=== PATIENT | male | born 1955 | race Caucasian/White ===

== ENCOUNTER 2021-12-05 09:36 | Day surgery (SDC) | payer OTHER, SELFPAY ==
[2021-12-05] VITALS (25 sets, daily range): BP systolic 95–146; BP diastolic 62–95; PULSE 60–93; RESP 12–20; TEMP 36.3–37.1; O2SAT 92–100; BMI 37.7
--- NOTE | 2021-12-05 09:58 | ED.GENADULT ---
HPI - General Adult General Time Seen by Provider: 09:58 Date Seen: 12/05/21 Chief complaint: Abdominal Pain Stated complaint: Abdominal Pain Time Seen by Provider: 12/05/21 09:37 Source: patient Mode of arrival: ambulatory Limitations: no limitations History of Present Illness HPI narrative: The patient is a 65-year-old male experienced abdominal pain since yesterday. It started in his right lower quadrant has remained there. He has some mild nausea. He has definite palpable tenderness in right lower quadrant. No urinary symptoms, no constipation or diarrhea. He has had history of abdominal surgery with hernia, but still has a gallbladder and appendix. He has a pacemaker in place, and has been on Lasix for peripheral edema. He has no chest pain leg pain. He is on Eliquis for blood thinning as well. His chart will be reviewed. No jaundice, no right upper quadrant pain, no rigors or chills. No change in urinary pattern. Related Data Home Medications Medication Instructions Recorded Confirmed apixaban 5 mg tablet (Eliquis) 5 mg PO Q12H 12/05/21 12/05/21 atorvastatin 20 mg tablet 20 mg PO HS 12/05/21 12/05/21 furosemide 40 mg tablet 40 mg PO DAILY 12/05/21 12/05/21 losartan 50 mg tablet 50 mg PO HS 12/05/21 12/05/21 metoprolol succinate 50 mg 75 mg PO DAILY 12/05/21 12/05/21 tablet,extended release 24 hr Allergies Allergy/AdvReac Type Severity Reaction Status Date / Time ampicillin Allergy Hives Verified 12/05/21 10:04 Review of Systems Status of ROS: Reports: 10 or more systems reviewed and unremarkable except as noted in History and below Exam Narrative: Exam Narrative: Objective: In general the patient is no apparent distress, alert or x3 No jaundice, no cyanosis HEENT is unremarkable Neck supple Chest is clear Heart rhythm regular without murmur Abdomen obese mild right lower abdominal right-sided tenderness, mild peritoneal inflammation with mild rebound, no palpable mass Extremities with 1+ edema, skin warm and dry Const: Vital Signs, click to edit/add: Vital Signs - 24 hr 12/05/21 09:58 Temperature 97.3 F L Pulse Rate [Left P ulse Oximeter] 93 Respiratory Rate 20 Blood Pressure [Le ft Upper Arm] 132/73 Pulse Oximetry 96 Course Course Hospital Course: Because of the patient's right lower quadrant pain and his tenderness to palpation concern would be for appendicitis. Patient will get an IV, IV fluid, laboratory studies, CT scan with IV contrast and possible surgical consultation Vital Signs Vital signs: Initial Vital Signs Temperature 97.3 F L 12/05/21 09:58 Temperature Source Temporal Artery Scan 12/05/21 09:58 Pulse Rate 93 12/05/21 09:58 Pulse Rhythm 12/05/21 09:58 Respiratory Rate 20 12/05/21 09:58 Blood Pressure 132/73 12/05/21 09:58 Blood Pressure Mean 92 12/05/21 09:58 Blood Pressure Position Sitting 12/05/21 09:58 Pulse Oximetry 96 12/05/21 09:58 Oxygen Delivery Method 12/05/21 09:58 Vital Signs Temperature 97.3 F L 12/05/21 09:58 Pulse Rate 93 12/05/21 09:58 Respiratory Rate 20 12/05/21 09:58 Blood Pressure 132/73 12/05/21 09:58 Pulse Oximetry 96 12/05/21 09:58 Temperature 97.3 F L 12/05/21 09:58 Pulse Rate 93 12/05/21 09:58 Respiratory Rate 20 12/05/21 09:58 Blood Pressure 132/73 12/05/21 09:58 Pulse Oximetry 96 12/05/21 09:58 Medical Decision Making MDM Narrative Medical decision making narrative: Given the patient's right lower quadrant pain, rule out appendicitis appears appropriate, CT scan labs IV fluids pain control, NPO status. The patient last ate yesterday. Discharge Plan Discharge Clinical Impression: Abdominal pain Prescriptions: No Action Eliquis 5 mg tablet 5 mg PO Q12H 0RF Label Comments: TAKE 1 TABLET BY MOUTH TWICE DAILY furosemide 40 mg tablet 40 mg PO DAILY 0RF Label Comments: TAKE 1/2 (ONE-HALF) TABLET BY MOUTH ONCE DAILY FOR 3 DAYS THEN RESUME 1 TABLET ONCE DAILY NEEDED metoprolol succinate 50 mg tablet extended release 24 hr 75 mg PO DAILY 0RF Label Comments: TAKE 1 & 1/2 (ONE & ONE-HALF) TABLETS BY MOUTH ONCE DAILY losartan 50 mg tablet 50 mg PO HS 0RF atorvastatin 20 mg tablet 20 mg PO HS 0RF Follow Up/Referrals: Mehul Hernandez MD [Primary Care Provider] -
--- NOTE | 2021-12-05 10:02 | CRLHL7_ITS ---
For Patients: As a result of the Century Cures Act, medical imaging exams and procedure reports are released immediately into your electronic medical record. You may view this report before your referring provider. If you have questions, please contact your health care provider. INDICATION: Right lower quadrant pain. TECHNIQUE: CT abdomen and pelvis acquired with IV contrast. 132 mL IV Isovue 370. COMPARISON: None available. FINDINGS: Lower chest: Pacemaker leads are partially visualized. Liver: There is geographic hypoattenuation in segments 6 and 7 which can be related to fatty infiltration as there are normal vessels coursing through or due to perfusion differences. Gallbladder and bile ducts: Unremarkable. Spleen: Unremarkable. Pancreas: Unremarkable. Adrenal glands: Unremarkable. Kidneys: No kidney or ureteral stones and no hydronephrosis. There are few hypoattenuating renal lesions are too small to accurately characterize. GI tract: There are few scattered colonic diverticula but no evidence of acute diverticulitis. No bowel obstruction. The appendix is dilated measuring 1 cm in diameter, peripherally enhancing and has marked surrounding fat stranding. No free air or loculated fluid collection. Vascular structures: Mild atherosclerotic calcifications of the abdominal aorta and branches. No abdominal aortic aneurysm. Lymph nodes: No abdominal lymphadenopathy. Evaluation the pelvis is somewhat limited due to streak artifact from the bilateral hip arthroplasties. Miscellaneous: No ascites. No free air. Pelvic Organs: Evaluation is limited due to streak artifact from the hip arthroplasties. Bones: There are bilateral hip arthroplasty devices which are partially visualized. Degenerative changes in the spine. No acute osseous abnormality. No suspicious bone lesion. IMPRESSION: Acute uncomplicated appendicitis. Please note that all CT scans at this facility use dose modulation, iterative reconstruction, and/or weight-based dosing when appropriate to reduce radiation dose to as low as reasonably achievable. Dictated by Mikaela Duffy MD @ 12/05/2021 12:17:06 PM (Electronically Signed)
[2021-12-05 10:24] LABS: Appearance Urine Clear (Clear); Bilirubin Urine Negative (Negative); Blood Urine 1+ (Negative); Color Urine Yellow (Yellow); Glucose Urine Negative (Negative); Ketones Urine Negative (Negative); Leukocyte Esterase Urine 1+ (Negative); Nitrite Urine Negative (Negative); Protein Urine Negative (Negative); Urobilinogen Urine 0.2 (0.2-1.0); pH Urine 5.5 (5.0-8.5)
[2021-12-05] MEDS: 0.9 % SODIUM CHLORIDE 1000 ml 1,000 ML 6000 ML IV (10:27)
[2021-12-05 10:28] LABS: Basophils Percent Auto 0.1 % (0.0-3.0); Eosinophils Percent Auto 0.2 % (0.0-7.0); Hematocrit 43.7 % (37.0-53.0); Hemoglobin* 14.2 gm/dL (13.5-17.5); Immature Granulocytes Abs Auto 0.01 K/uL (0.00-0.30); Lymphocytes Percent Auto 10.3 % (20-44); Mean Corpuscular HGB Conc 33 gm/dL (32-36); Mean Corpuscular Hemoglobin 30 pg (26-34); Mean Corpuscular Volume 93 fL (80-100); Monocytes Percent Auto 7.5 % (0.0-11.0); Neutrophils Percent Auto 81.8 % (42.0-72.0); Platelet Count* 185 K/uL (140-440); RDW Coefficient of Variation % 13.1 % (11.5-15.5); Red Blood Count 4.72 m/uL (4.30-5.90); White Blood Count* 12.53 K/uL (4.50-11.00)
[2021-12-05] MEDS: ONDANSETRON 2 MG/ML inj 4 MG IVP (10:28)
[2021-12-05] MEDS: MORPHINE 4 MG/ML INJ 2 MG IVP (10:29)
[2021-12-05 10:30] LABS: Slide Review Reflex No
[2021-12-05 10:44] LABS: Albumin* 4.2 g/dL (3.3-5.0); Chloride* 101 mmol/L (96-114)
[2021-12-05 10:45] LABS: INR 1.43 (0.91-1.10); Potassium* 4.5 mmol/L (3.6-5.1); Prothrombin Time 17.9 Seconds; Sodium* 138 mmol/L (135-149)
[2021-12-05 10:46] LABS: Partial Thromboplastin Time* 40 Seconds (23-33)
[2021-12-05 10:47] LABS: Amylase* 66 U/L (18-89); Est. Creatinine Clearance* 78.44; Estimated Glomerular Filt Rate 84 ml/min
[2021-12-05 10:48] LABS: Alanine Aminotransferase* 21 U/L (4-50); Alkaline Phosphatase* 124 U/L (40-150); Aspartate Amino Transferase* 31 U/L (12-35); Bilirubin Direct* 0.1 mg/dL (0.0-0.5); Bilirubin Total* 1.6 mg/dL (0.1-1.5); Blood Urea Nitrogen* 21 mg/dL (7-30); Carbon Dioxide* 33 mmol/L (20-32); Glucose* 111 mg/dL (60-115); Total Protein* 7.3 g/dL (6.0-8.3)
[2021-12-05 10:49] LABS: RBC Urine 0-2 (0-2)
[2021-12-05 10:50] LABS: Amorphous Sediment Urine Few; Bacteria Urine Few; Squamous Epithelial Cell Urine Few (None-Few)
[2021-12-05 10:51] LABS: C Reactive Protein* 4.5 mg/dL (0.5-1.0)
[2021-12-05 10:56] LABS: NT Pro B Type NatriureticPept* 881 PG/mL (0-125)
[2021-12-05 11:18] LABS: SARS PCR* Negative SARS-CoV-2 (Negative)
--- NOTE | 2021-12-05 11:39 | ED.GENADULT ---
HPI - General Adult General Chief complaint: Abdominal Pain Stated complaint: Abdominal Pain Time Seen by Provider: 12/05/21 09:37 Related Data Home Medications Medication Instructions Recorded Confirmed apixaban 5 mg tablet (Eliquis) 5 mg PO Q12H 12/05/21 12/05/21 atorvastatin 20 mg tablet 20 mg PO HS 12/05/21 12/05/21 furosemide 40 mg tablet 40 mg PO DAILY 12/05/21 12/05/21 losartan 50 mg tablet 50 mg PO HS 12/05/21 12/05/21 metoprolol succinate 50 mg 75 mg PO DAILY 12/05/21 12/05/21 tablet,extended release 24 hr Previous Rx's Medication Instructions Recorded oxycodone 5 mg tablet 5 mg PO Q6H PRN #15 tab 12/05/21 sennosides 8.6 mg capsule (senna) 8.6 mg PO DAILY PRN #90 cap 12/05/21 Allergies Allergy/AdvReac Type Severity Reaction Status Date / Time ampicillin Allergy Hives Verified 12/05/21 11:22 PFSH PFS Social History Smoking Status: Former smoker Do you use any of these nicotine containing products: None Second hand tobacco smoke exposure: No How often do you have a drink containing alcohol: never How often do you have six or more drinks on one occasion: Never AUDIT-C Alcohol total score: 0 Non-prescribed substance use: denies use Caffeine: Yes service: No Exam Const: Vital Signs, click to edit/add: Vital Signs - 24 hr 12/05/21 09:58 12/05/21 10:00 12/05/21 10:30 Temperature 97.3 F L Pulse Rate Pulse Rate [Left B rachial] Pulse Rate [Left P ulse Oximeter] 93 62 60 Respiratory Rate 20 20 20 Blood Pressure Blood Pressure [Le ft Arm] Blood Pressure [Le ft Upper Arm] 132/73 105/69 99/69 Pulse Oximetry 96 95 96 12/05/21 11:30 12/05/21 14:38 12/05/21 14:40 Temperature 97.8 F Pulse Rate 60 60 Pulse Rate [Left B rachial] Pulse Rate [Left P ulse Oximeter] 60 Respiratory Rate 20 14 14 Blood Pressure 117/69 118/69 Blood Pressure [Le ft Arm] Blood Pressure [Le ft Upper Arm] 121/67 Pulse Oximetry 97 97 96 12/05/21 14:45 12/05/21 14:50 12/05/21 14:55 Temperature Pulse Rate 60 60 60 Pulse Rate [Left B rachial] Pulse Rate [Left P ulse Oximeter] Respiratory Rate 14 12 12 Blood Pressure 120/67 119/68 112/63 Blood Pressure [Le ft Arm] Blood Pressure [Le ft Upper Arm] Pulse Oximetry 100 95 95 12/05/21 15:00 12/05/21 15:05 12/05/21 15:15 Temperature 98.5 F 97.5 F L Pulse Rate 60 60 62 Pulse Rate [Left B rachial] 62 Pulse Rate [Left P ulse Oximeter] Respiratory Rate 12 12 16 Blood Pressure 106/65 112/62 Blood Pressure [Le ft Arm] 106/65 Blood Pressure [Le ft Upper Arm] Pulse Oximetry 96 95 92 12/05/21 15:29 12/05/21 15:30 12/05/21 15:45 Temperature 97.5 F L 97.5 F L Pulse Rate Pulse Rate [Left B rachial] 60 60 Pulse Rate [Left P ulse Oximeter] Respiratory Rate 16 16 Blood Pressure Blood Pressure [Le ft Arm] 102/63 103/63 Blood Pressure [Le ft Upper Arm] Pulse Oximetry 92 95 93 12/05/21 16:00 12/05/21 16:09 12/05/21 16:15 Temperature 97.6 F 97.6 F Pulse Rate Pulse Rate [Left B rachial] 60 61 Pulse Rate [Left P ulse Oximeter] Respiratory Rate 18 16 18 Blood Pressure Blood Pressure [Le ft Arm] 111/71 123/74 Blood Pressure [Le ft Upper Arm] Pulse Oximetry 93 94 12/05/21 16:45 12/05/21 17:00 12/05/21 18:00 Temperature 97.6 F 97.9 F 97.7 F Pulse Rate Pulse Rate [Left B rachial] 60 60 60 Pulse Rate [Left P ulse Oximeter] Respiratory Rate 16 16 18 Blood Pressure Blood Pressure [Le ft Arm] 139/83 146/95 H 138/93 H Blood Pressure [Le ft Upper Arm] Pulse Oximetry 94 96 Course Course Hospital Course: Because of the patient's right lower quadrant pain and his tenderness to palpation concern would be for appendicitis. Patient will get an IV, IV fluid, laboratory studies, CT scan with IV contrast and possible surgical consultation Vital Signs Vital signs: Initial Vital Signs Temperature 97.3 F L 12/05/21 09:58 Temperature Source Temporal Artery Scan 12/05/21 09:58 Pulse Rate 93 12/05/21 09:58 Pulse Rhythm 12/05/21 09:58 Respiratory Rate 20 12/05/21 09:58 Blood Pressure 132/73 12/05/21 09:58 Blood Pressure Mean 92 12/05/21 09:58 Blood Pressure Position Sitting 12/05/21 09:58 Pulse Oximetry 96 12/05/21 09:58 Oxygen Delivery Method 12/05/21 09:58 Vital Signs Temperature 97.3 F L 12/05/21 09:58 Pulse Rate 93 12/05/21 09:58 Respiratory Rate 20 12/05/21 09:58 Blood Pressure 132/73 12/05/21 09:58 Pulse Oximetry 96 12/05/21 09:58 Temperature 97.7 F 12/05/21 18:00 Pulse Rate 60 12/05/21 18:00 Respiratory Rate 18 12/05/21 18:00 Blood Pressure 138/93 H 12/05/21 18:00 Pulse Oximetry 96 12/05/21 18:00 Medical Decision Making MDM Narrative Medical decision making narrative: The patient has CT scan evidence by Dr. Rudd consultation General surgery acute appendicitis. IV fluids NPO status, surgical consult. Lab Data Labs: Lab Results 12/05/21 12/05/21 12/05/21 Range/Units 10:10 10:15 10:15 WBC 12.53 H (4.50-11.00) K/uL RBC 4.72 (4.30-5.90) m/uL Hgb 14.2 (13.5-17.5) gm/dL Hct 43.7 (37.0-53.0) % MCV 93 (80-100) fL MCH 30 (26-34) pg MCHC 33 (32-36) gm/dL RDW Coeff of Oscar 13.1 (11.5-15.5) % Plt Count 185 (140-440) K/uL Neut % (Auto) 81.8 H (42.0-72.0) % Lymph % (Auto) 10.3 L (20-44) % [place] % (Auto) 7.5 (0.0-11.0) % Eos % (Auto) 0.2 (0.0-7.0) % Baso % (Auto) 0.1 (0.0-3.0) % Neut # (Auto) 10.20 H (1.7-7.0) K/uL Lymph # (Auto) 1.30 (0.90-2.90) K/uL [place] # (Auto) 0.90 (0.00-0.90) K/UL Eos # (Auto) 0.00 (0.00-0.50) K/uL Baso # (Auto) 0.00 (0.00-0.30) K/uL Abs Immat Gran (auto) 0.01 (0.00-0.30) K/uL INR (0.91-1.10) APTT (23-33) Seconds Sodium 138 (135-149) mmol/L Potassium 4.5 (3.6-5.1) mmol/L Chloride 101 (96-114) mmol/L Carbon Dioxide 33 H (20-32) mmol/L BUN 21 (7-30) mg/dL Creatinine 1.0 (0.5-1.5) mg/dL Estimated Creat Clear 78.44 Estimated GFR 84 ml/min Glucose 111 (60-115) mg/dL Calcium 9.0 (8.4-10.6) mg/dL Total Bilirubin 1.6 H (0.1-1.5) mg/dL Direct Bilirubin 0.1 (0.0-0.5) mg/dL AST 31 (12-35) U/L ALT 21 (4-50) U/L Alkaline Phosphatase 124 (40-150) U/L C-Reactive Protein 4.5 H (0.5-1.0) mg/dL NT-Pro-B Natriuret Pep 881 H (0-125) PG/mL Total Protein 7.3 (6.0-8.3) g/dL Albumin 4.2 (3.3-5.0) g/dL Amylase 66 (18-89) U/L Urine Color Yellow (Yellow) Urine Appearance Clear (Clear) Urine pH 5.5 (5.0-8.5) Ur Specific [place] 1.010 (1.000-1.030) Urine Protein Negative (Negative) Urine Glucose (UA) Negative (Negative) Urine Ketones Negative (Negative) Urine Blood 1+ A (Negative) Urine Nitrite Negative (Negative) Urine Bilirubin Negative (Negative) Urine Urobilinogen 0.2 (0.2-1.0) Ur Leukocyte Esterase 1+ A (Negative) Urine RBC 0-2 (0-2) Urine WBC 2-5 (0-5) Ur Squamous Epith Cells Few (None-Few) Amorphous Sediment Few A (None) Urine Bacteria Few A (None) Urine Mucus (None) SARS-CoV-2 (PCR) (Negative) 12/05/21 12/05/21 Range/Units 10:15 10:15 WBC (4.50-11.00) K/uL RBC (4.30-5.90) m/uL Hgb (13.5-17.5) gm/dL Hct (37.0-53.0) % MCV (80-100) fL MCH (26-34) pg MCHC (32-36) gm/dL RDW Coeff of Oscar (11.5-15.5) % Plt Count (140-440) K/uL Neut % (Auto) (42.0-72.0) % Lymph % (Auto) (20-44) % [place] % (Auto) (0.0-11.0) % Eos % (Auto) (0.0-7.0) % Baso % (Auto) (0.0-3.0) % Neut # (Auto) (1.7-7.0) K/uL Lymph # (Auto) (0.90-2.90) K/uL [place] # (Auto) (0.00-0.90) K/UL Eos # (Auto) (0.00-0.50) K/uL Baso # (Auto) (0.00-0.30) K/uL Abs Immat Gran (auto) (0.00-0.30) K/uL INR 1.43 H (0.91-1.10) APTT 40 H (23-33) Seconds Sodium (135-149) mmol/L Potassium (3.6-5.1) mmol/L Chloride (96-114) mmol/L Carbon Dioxide (20-32) mmol/L BUN (7-30) mg/dL Creatinine (0.5-1.5) mg/dL Estimated Creat Clear Estimated GFR ml/min Glucose (60-115) mg/dL Calcium (8.4-10.6) mg/dL Total Bilirubin (0.1-1.5) mg/dL Direct Bilirubin (0.0-0.5) mg/dL AST (12-35) U/L ALT (4-50) U/L Alkaline Phosphatase (40-150) U/L C-Reactive Protein (0.5-1.0) mg/dL NT-Pro-B Natriuret Pep (0-125) PG/mL Total Protein (6.0-8.3) g/dL Albumin (3.3-5.0) g/dL Amylase (18-89) U/L Urine Color (Yellow) Urine Appearance (Clear) Urine pH (5.0-8.5) Ur Specific [place] (1.000-1.030) Urine Protein (Negative) Urine Glucose (UA) (Negative) Urine Ketones (Negative) Urine Blood (Negative) Urine Nitrite (Negative) Urine Bilirubin (Negative) Urine Urobilinogen (0.2-1.0) Ur Leukocyte Esterase (Negative) Urine RBC (0-2) Urine WBC (0-5) Ur Squamous Epith Cells (None-Few) Amorphous Sediment (None) Urine Bacteria (None) Urine Mucus (None) SARS-CoV-2 (PCR) Negative SARS-CoV-2 (Negative) Discharge Plan Discharge Clinical Impression: Abdominal pain, Acute appendicitis Patient Disposition: Admitted As Inpatient Condition: Stable Activity Level: Activity as Tolerated Activity Detail: Activity as tolerated. Avoid strenuous activity. No lifting greater than 20 lb for 2 weeks. Discharge Diet: Regular
--- NOTE | 2021-12-05 12:13 | PM.GSHP ---
History of Present Illness History of Present Illness Date Seen: 12/05/21 Chief complaint: Abdominal Pain Narrative: Wayne Wilcox is a 65 year old male presented to the emergency department with right lower quadrant abdominal pain. He states that the pain started yesterday evening out of the blue. He has never had pain like this before. The pain just increased in intensity overnight, prompting him to come in to be evaluated. He is also reporting some decrease in appetite. He did not eat breakfast this morning, last had a glass of orange juice at 7:30 a.m.. Denies any nausea or emesis. No diarrhea or constipation. His abdominal surgical history is positive for an umbilical hernia repair. He is on Eliquis for a pacemaker, and he did take his medication this morning. Review of Systems Status of ROS: Reports: 6 or more systems reviewed and unremarkable except as noted in History and below PFSH [facility] Social History Smoking Status: Former smoker Do you use any of these nicotine containing products: None Second hand tobacco smoke exposure: No How often do you have a drink containing alcohol: never How often do you have six or more drinks on one occasion: Never AUDIT-C Alcohol total score: 0 Non-prescribed substance use: denies use Meds Home Medications and Allergies Home Medications Medication Instructions Recorded Confirmed Type apixaban 5 mg tablet (Eliquis) 5 mg PO Q12H 12/05/21 12/05/21 History atorvastatin 20 mg tablet 20 mg PO HS 12/05/21 12/05/21 History furosemide 40 mg tablet 40 mg PO DAILY 12/05/21 12/05/21 History losartan 50 mg tablet 50 mg PO HS 12/05/21 12/05/21 History metoprolol succinate 50 mg 75 mg PO DAILY 12/05/21 12/05/21 History tablet,extended release 24 hr Allergies Allergy/AdvReac Type Severity Reaction Status Date / Time ampicillin Allergy Hives Verified 12/05/21 11:22 Exam Narrative: Exam Narrative: General: Alert and oriented, no acute distress Respiratory: Equal breath rise bilaterally, maintained on room air CV: Regular rhythm and rate, well perfused. Abdomen: Obese abdomen, tender to palpation right lower quadrant with some guarding and rebound. Soft and nondistended. Const: Vital Signs, click to edit/add: Vital Signs - 24 hr 12/05/21 09:58 12/05/21 10:00 12/05/21 10:30 Temperature 97.3 F L Pulse Rate [Left P ulse Oximeter] 93 62 60 Respiratory Rate 20 20 20 Blood Pressure [Le ft Upper Arm] 132/73 105/69 99/69 Pulse Oximetry 96 95 96 12/05/21 11:30 Temperature Pulse Rate [Left P ulse Oximeter] 60 Respiratory Rate 20 Blood Pressure [Le ft Upper Arm] 121/67 Pulse Oximetry 97 Results Results Labs: Evidence of leukocytosis, COVID negative Abdomen CT scan report/results: image reviewed (Report pending) Assessment and Plan Assessment and plan (1) Acute appendicitis: Status: Acute Plan The patient presented with a history, exam and imaging findings consistent with acute appendicitis. No evidence of perforation or associated abscess on CT imaging. I discussed the treatment options with the patient including non-surgical and surgical options. I recommended laparoscopic appendectomy. The risks of surgery were reviewed with the patient including the risks of bleeding, post-operative wound or intra-abdominal infection, injury to abdominal structures and possible conversion to an open operation. Patient does understand that he is at a slightly increased bleeding risk given his anticoagulation with Eliquis. We also discussed anesthetic complications including [place], stroke, respiratory failure and blood clots. The patient voiced an understanding of our conversation, had the opportunity to ask questions, agreed to accept the risks of surgery and asked that we proceed with surgery. -OR for laparoscopic appendectomy -preop antibiotics -will plan for recovery as same-day surgery
[2021-12-05] MEDS: LACTATED RINGERS 1000 ML 1,000 ML 100 ML IV ×2 (12:55→14:16)
[2021-12-05] MEDS: ERTAPENEM 1 GM in 0.9 % SODIUM CHLORIDE Mini-bag 100 ML IVPB (13:05)
[2021-12-05] MEDS: BUPIVACAINE 0.25% 30 ML INJECTION (13:28)
--- NOTE | 2021-12-05 14:25 | PM.GSPRC ---
Operative Note Date of procedure: 12/05/21 Type of Procedure: Laparoscopic Appendectomy Procedure Description: After discussing the risks and benefits of the procedure, the patient signed informed consent.? The operative site was marked and the patient was brought to the operating room and placed on the operating table in supine position.? Care was taken to pad the patient's pressure points.?? The patient was then [intubated/given sedation] by anesthesia.?? The operative site was then prepped and draped in the usual sterile fashion.? A time-out was then performed. Entrance to the abdomen was obtained via a 5 mm optical trocar in the left upper quadrant. The abdomen was insufflated and briefly surveyed for any signs of injury. There were none. A 12 mm port was placed lateral to the umbilicus as well as a 5 mm port in the left lower quadrant under direct vision. The patient was then placed in Trendelenburg position with the right side up. There were adhesions from his umbilical hernia repair with adhered omentum. This was taken down with electrocautery. No small bowel was involved and remained out of the operative field. The small bowel was gently moved out of the way and the appendix was in view. A small amount of dissection was necessary to free the appendix from the surrounding pelvic attachments. This was grasped and pulled into view. A mesenteric window was created between the base of the appendix and the mesoappendix. A 30 mm Endo-DREA purple load stapler was then used to transect the appendix at its base. A 45 mm vascular load stapler was then used to take the mesoappendix. The staple lines were inspected for bleeding. There was some arterial bleeding on the mesentery that was controlled with a 5mm clip.There was also some generalized bleeding from the surrounding inflammation. This was controlled with surgicell. The appendix was then removed from the abdomen using an Endo-Catch bag. The specimen was sent to pathology. The abdomen was surveyed for bleeding, there was a small amount of bleeding on the omentum, which was controlled with a 5 mm clip. Hemostasis was excellent at the end of the case. The 12 mm port site fascia was closed with 0 Vicryl. The left lower quadrant fascia was also able to be closed with 0-vicryl suture. The skin was then closed with absorbable subcuticular suture. Sterile dressings were then applied. Instrument sponge and needle counts were correct at the end of the case. The patient was then woken and transported to the PACU in stable condition. ? Sterile dressings were then applied. ? The patient was then woken and transported to the recovery area in stable condition. ? The patient tolerated the procedure well. Findings: Inflamed appendix, non perforated. Anesthesia: GETA Surgeon: Soledad Casiano MD Estimated blood loss (mL): 15 Condition: stable Disposition: observation
--- NOTE | 2021-12-05 14:43 | W.ANESCHARGE ---
Anesthesia Charges Start Date/Time Anesthesia Start Date: 12/05/21 Anesthesia Start Time: 12:55 Stop Date/Time Anesthesia Stop Date: 12/05/21 Anesthesia Stop Time: 14:38 Summary Emergency: Yes
[2021-12-05] MEDS: LACTATED RINGERS 1000 ML 1,000 ML 125 ML IV ×2 (15:15→21:00)
[2021-12-05] MEDS: OXYCODONE 5 MG TABLET PO ×2 (16:27→20:58)
--- NOTE | 2021-12-05 18:04 | PC.NURSE ---
Shift Summary: Patient arrived to room @ 1515. Drowsy upon arrival and needing o2 @ 0.5L/NC, able to maintain o2 sats >90% after 30min. Is up in chair, tolerating regular diet, has had PRN oxycodone x1 for pain. Lap sites open to air. Lung sounds clear, bowel sounds present. Family at bedside upon arrival, now gone home. Vitals stable and WNL. Up with one assist and gait belt. Has not yet voided.
[2021-12-05] MEDS: ATORVASTATIN 10 MG TABLET 20 MG PO (20:57)
[2021-12-05] MEDS: LOSARTAN POTASSIUM 50 MG TABLET PO (20:57)
[2021-12-06 03:00] VITALS: BP 110/80; PULSE 62; RESP 20; TEMP 36.8; O2SAT 94
[2021-12-06] MEDS: OXYCODONE 5 MG TABLET PO (04:30)
--- NOTE | 2021-12-06 05:30 | PC.NURSE ---
[id number]: Patient pleasant and cooperative with cares. Rates pain 3-5/10. Relief with PRN Oxycodone x2. Appeared to rest well during noc. Tolerates regular diet. Denies N/V. 3 lap sites DEVORA. Active ice applied to abdomen. Bowel sounds active. Voiding.
[2021-12-06 07:00] VITALS: BP 158/73; PULSE 61; RESP 20; TEMP 37.3; O2SAT 95
[2021-12-06 07:12] LABS: Immature Granulocytes Abs Auto 0.02 K/uL (0.00-0.30); Lymphocytes Percent Auto 7.7 % (20-44); Mean Corpuscular HGB Conc 32 gm/dL (32-36); Mean Corpuscular Hemoglobin 31 pg (26-34); Mean Corpuscular Volume 94 fL (80-100); Monocytes Percent Auto 6.8 % (0.0-11.0); Neutrophils Percent Auto 85.3 % (42.0-72.0); Platelet Count* 151 K/uL (140-440); RDW Coefficient of Variation % 13.1 % (11.5-15.5); Red Blood Count 3.93 m/uL (4.30-5.90); White Blood Count* 10.12 K/uL (4.50-11.00)
[2021-12-06 07:13] LABS: Slide Review Reflex No
--- NOTE | 2021-12-06 08:33 | PM.DS1 ---
DS: Providers Provider Date Seen: 12/06/21 Primary care physician: Not a Local Provider Attending Physician on discharge: Soledad Casiano MD DS: Diagnosis Discharge Diagnosis (1) Acute appendicitis: Status: Acute DS: Summary Hospital Course Hospital Course: Patient presented to the emergency department with evidence of acute, uncomplicated appendicitis. He is on blood thinners, Eliquis for his pacemaker and had taking the medication that morning. Underwent a laparoscopic appendectomy. There was no evidence of perforation and the procedure was without immediate complication. Due to his high risk of bleeding he was observed overnight. His vital signs were stable overnight, although systolic blood pressure was a borderline low (90-110), but no evidence of tachycardia. His abdomen this morning was benign and patient was asymptomatic. Repeat labs demonstrated a slight trend down in his hemoglobin (14--12), this likely a is secondary to intraoperative blood loss and fluids. Low concern at this time for any ongoing bleeding. At the time of discharge patient was tolerating a regular diet, pain was well controlled on oral medication and he was ambulating independently. Patient was instructed to begin his Eliquis tomorrow morning. Time Spent with Patient Time attestation: Total time spent providing and/or coordinating discharge services: Exam Narrative: Exam Narrative: General: Alert and oriented, no acute distress. Lying comfortably in chair Respiratory: Equal breath rise bilaterally, maintained on room air CV: Regular rhythm and rate, well perfused. Abdomen: Obese abdomen, soft, appropriately tender over incision sites. Incisions are clean/dry/intact with no concern for infection Const: Vital Signs, click to edit/add: Vital Signs - 24 hr 12/05/21 09:58 12/05/21 10:00 12/05/21 10:30 Temperature 97.3 F L Pulse Rate Pulse Rate [Left B rachial] Pulse Rate [Left P ulse Oximeter] 93 62 60 Respiratory Rate 20 20 20 Blood Pressure Blood Pressure [Le ft Arm] Blood Pressure [Le ft Upper Arm] 132/73 105/69 99/69 Pulse Oximetry 96 95 96 12/05/21 11:30 12/05/21 14:38 12/05/21 14:40 Temperature 97.8 F Pulse Rate 60 60 Pulse Rate [Left B rachial] Pulse Rate [Left P ulse Oximeter] 60 Respiratory Rate 20 14 14 Blood Pressure 117/69 118/69 Blood Pressure [Le ft Arm] Blood Pressure [Le ft Upper Arm] 121/67 Pulse Oximetry 97 97 96 12/05/21 14:45 12/05/21 14:50 12/05/21 14:55 Temperature Pulse Rate 60 60 60 Pulse Rate [Left B rachial] Pulse Rate [Left P ulse Oximeter] Respiratory Rate 14 12 12 Blood Pressure 120/67 119/68 112/63 Blood Pressure [Le ft Arm] Blood Pressure [Le ft Upper Arm] Pulse Oximetry 100 95 95 12/05/21 15:00 12/05/21 15:05 12/05/21 15:15 Temperature 98.5 F 97.5 F L Pulse Rate 60 60 62 Pulse Rate [Left B rachial] 62 Pulse Rate [Left P ulse Oximeter] Respiratory Rate 12 12 16 Blood Pressure 106/65 112/62 Blood Pressure [Le ft Arm] 106/65 Blood Pressure [Le ft Upper Arm] Pulse Oximetry 96 95 92 12/05/21 15:29 12/05/21 15:30 12/05/21 15:45 Temperature 97.5 F L 97.5 F L Pulse Rate Pulse Rate [Left B rachial] 60 60 Pulse Rate [Left P ulse Oximeter] Respiratory Rate 16 16 Blood Pressure Blood Pressure [Le ft Arm] 102/63 103/63 Blood Pressure [Le ft Upper Arm] Pulse Oximetry 92 95 93 12/05/21 16:00 12/05/21 16:09 12/05/21 16:15 Temperature 97.6 F 97.6 F Pulse Rate Pulse Rate [Left B rachial] 60 61 Pulse Rate [Left P ulse Oximeter] Respiratory Rate 18 16 18 Blood Pressure Blood Pressure [Le ft Arm] 111/71 123/74 Blood Pressure [Le ft Upper Arm] Pulse Oximetry 93 94 12/05/21 16:45 12/05/21 17:00 12/05/21 18:00 Temperature 97.6 F 97.9 F 97.7 F Pulse Rate Pulse Rate [Left B rachial] 60 60 60 Pulse Rate [Left P ulse Oximeter] Respiratory Rate 16 16 18 Blood Pressure Blood Pressure [Le ft Arm] 139/83 146/95 H 138/93 H Blood Pressure [Le ft Upper Arm] Pulse Oximetry 94 96 12/05/21 19:00 12/05/21 20:00 12/05/21 21:00 Temperature 98.4 F 98.4 F 98.4 F Pulse Rate Pulse Rate [Left B rachial] 60 60 64 Pulse Rate [Left P ulse Oximeter] Respiratory Rate 18 18 16 Blood Pressure Blood Pressure [Le ft Arm] 109/74 109/74 95/62 Blood Pressure [Le ft Upper Arm] Pulse Oximetry 96 96 94 12/05/21 23:00 12/06/21 03:00 Temperature 98.4 F 98.3 F Pulse Rate Pulse Rate [Left B rachial] 64 62 Pulse Rate [Left P ulse Oximeter] Respiratory Rate 16 20 Blood Pressure Blood Pressure [Le ft Arm] 95/62 110/80 Blood Pressure [Le ft Upper Arm] Pulse Oximetry 94 94 DS: Data Data Completed and Pending Labs on day of discharge: Labs from last 24 hours 12/06/21 12/05/21 12/05/21 06:33 13:45 10:15 WBC 10.12 RBC 3.93 L Hgb 12.0 L Hct 37.0 MCV 94 MCH 31 MCHC 32 RDW Coeff of Oscar 13.1 Plt Count 151 Neut % (Auto) 85.3 H Lymph % (Auto) 7.7 L [place] % (Auto) 6.8 Eos % (Auto) 0.0 Baso % (Auto) 0.0 Neut # (Auto) 8.60 H Lymph # (Auto) 0.80 L [place] # (Auto) 0.70 Eos # (Auto) 0.00 Baso # (Auto) 0.00 Abs Immat Gran (auto) 0.02 INR APTT Sodium Potassium Chloride Carbon Dioxide BUN Creatinine Estimated Creat Clear Estimated GFR Glucose Calcium Total Bilirubin Direct Bilirubin AST ALT Alkaline Phosphatase C-Reactive Protein NT-Pro-B Natriuret Pep Total Protein Albumin Amylase Urine Color Urine Appearance Urine pH Ur Specific [place] Urine Protein Urine Glucose (UA) Urine Ketones Urine Blood Urine Nitrite Urine Bilirubin Urine Urobilinogen Ur Leukocyte Esterase Urine RBC Urine WBC Ur Squamous Epith Cells Amorphous Sediment Urine Bacteria Urine Mucus SARS-CoV-2 (PCR) Negative SARS-CoV-2 Surg PTH (Off-Site) Pending 12/05/21 12/05/21 12/05/21 10:15 10:15 10:15 WBC 12.53 H RBC 4.72 Hgb 14.2 Hct 43.7 MCV 93 MCH 30 MCHC 33 RDW Coeff of Oscar 13.1 Plt Count 185 Neut % (Auto) 81.8 H Lymph % (Auto) 10.3 L [place] % (Auto) 7.5 Eos % (Auto) 0.2 Baso % (Auto) 0.1 Neut # (Auto) 10.20 H Lymph # (Auto) 1.30 [place] # (Auto) 0.90 Eos # (Auto) 0.00 Baso # (Auto) 0.00 Abs Immat Gran (auto) 0.01 INR 1.43 H APTT 40 H Sodium 138 Potassium 4.5 Chloride 101 Carbon Dioxide 33 H BUN 21 Creatinine 1.0 Estimated Creat Clear 78.44 Estimated GFR 84 Glucose 111 Calcium 9.0 Total Bilirubin 1.6 H Direct Bilirubin 0.1 AST 31 ALT 21 Alkaline Phosphatase 124 C-Reactive Protein 4.5 H NT-Pro-B Natriuret Pep 881 H Total Protein 7.3 Albumin 4.2 Amylase 66 Urine Color Urine Appearance Urine pH Ur Specific [place] Urine Protein Urine Glucose (UA) Urine Ketones Urine Blood Urine Nitrite Urine Bilirubin Urine Urobilinogen Ur Leukocyte Esterase Urine RBC Urine WBC Ur Squamous Epith Cells Amorphous Sediment Urine Bacteria Urine Mucus SARS-CoV-2 (PCR) Surg PTH (Off-Site) 12/05/21 10:10 WBC RBC Hgb Hct MCV MCH MCHC RDW Coeff of [place] Plt Count Neut % (Auto) Lymph % (Auto) [place] % (Auto) Eos % (Auto) Baso % (Auto) Neut # (Auto) Lymph # (Auto) [place] # (Auto) Eos # (Auto) Baso # (Auto) Abs Immat Gran (auto) INR APTT Sodium Potassium Chloride Carbon Dioxide BUN Creatinine Estimated Creat Clear Estimated GFR Glucose Calcium Total Bilirubin Direct Bilirubin AST ALT Alkaline Phosphatase C-Reactive Protein NT-Pro-B Natriuret Pep Total Protein Albumin Amylase Urine Color Yellow Urine Appearance Clear Urine pH 5.5 Ur Specific [place] 1.010 Urine Protein Negative Urine Glucose (UA) Negative Urine Ketones Negative Urine Blood 1+ A Urine Nitrite Negative Urine Bilirubin Negative Urine Urobilinogen 0.2 Ur Leukocyte Esterase 1+ A Urine RBC 0-2 Urine WBC 2-5 Ur Squamous Epith Cells Few Amorphous Sediment Few A Urine Bacteria Few A Urine Mucus SARS-CoV-2 (PCR) Surg PTH (Off-Site) Discharge Plan Discharge Disposition: Home, Self-Care Discharging Surgeon: Soledad Casiano Follow-Up Appointment: 2 weeks Prescriptions: New oxycodone 5 mg tablet 5 mg PO Q6H PRN (Reason: pain) Qty: 15 0RF senna 8.6 mg capsule 8.6 mg PO DAILY PRN (Reason: constipation) Qty: 90 0RF Rx Instructions: Please take stool softeners while on narcotic pain medication. Stop if having >2 stools per day. Continued Eliquis 5 mg tablet 5 mg PO Q12H 0RF Label Comments: TAKE 1 TABLET BY MOUTH TWICE DAILY furosemide 40 mg tablet 40 mg PO DAILY 0RF metoprolol succinate 50 mg tablet extended release 24 hr 75 mg PO DAILY 0RF losartan 50 mg tablet 50 mg PO HS 0RF atorvastatin 20 mg tablet 20 mg PO HS 0RF Activity Level: Activity as Tolerated Activity Detail: Activity as tolerated. Avoid strenuous activity. No lifting greater than 20 lb for 2 weeks. Discharge Diet: Regular Patient Instructions: Surgical Site Infections (DC), Laparoscopic Appendectomy (DC), Post-Operative Instructions: Appendectomy Follow-up: Mehul Hernandez MD [Referring] - Discharge Orders: Discharge Order (Routine); Ordered 12/06/21 Ordered By: Soledad Casiano
[2021-12-06] MEDS: METOPROLOL SUCCINATE (XL) 50 MG TAB 75 MG PO (08:51)
--- NOTE | 2021-12-06 10:34 | PC.NURSE ---
Discharge: Patient pleasant and cooperative. Patient vitally stable, lungs clear, BS WNL, IV removed, catheter intact. Patient rated pain 5/10, declined pain medication. Patient tolerating regular diet and urinating. Patient has x3 lap sites on abdomen, glued closed C/D/I. Patient signed discharge form and belongings sheet. Patient had no further questions regarding discharge. Patient left floor by wheelchair at 1026 to vehicle, took patient's belongings.
== END 2021-12-06 10:26 | disposition home or self-care (01) ==
LOC: ED 12:08 → SS 12:55 → MEDSURG 15:24
PROVIDERS: Emergency Provider Family Medicine; Visit Provider Surgery
PROC: 0DTJ4ZZ Resection of Appendix, Percutaneous Endoscopic Approach (ICD-10-PCS; CPT 44970; principal; 2021-12-05 12:15)
DX: K35.80 Unspecified acute appendicitis (principal); Z95.0 Presence of cardiac pacemaker; Z79.01 Long term (current) use of anticoagulants
CPT/HCPCS: 44970; 00840; 36415; 74177; 80048; 80076; 81001; 82150; 83880; 85025; 85610; 85730; 86140; 87086; 87635; 88304; 93005; 99140; 99284; A9270; J0330; J1100; J1335; J2250; J2270; J2405; J2704; J2710; J3010; J3490; J7030; J7120; Q9967

== ENCOUNTER 2022-12-29 17:05 | Emergency (ER) | payer OTHER, SELFPAY ==
[2022-12-29 17:10] VITALS: BP 180/114; PULSE 79; RESP 18; TEMP 36.3; O2SAT 100; BMI 37.7
--- NOTE | 2022-12-29 17:30 | CRLHL7_ITS ---
For Patients: As a result of the Century Cures Act, medical imaging exams and procedure reports are released immediately into your electronic medical record. You may view this report before your referring provider. If you have questions, please contact your health care provider. INDICATION: Right-sided abdominal pain. TECHNIQUE: CT abdomen and pelvis acquired with 132 mL Isovue 370 contrast. COMPARISON: CT abdomen/pelvis dated 12/05/2021. FINDINGS: Lower chest: No focal consolidation. Liver: No suspicious focal hepatic lesion. Gallbladder and bile ducts: Unremarkable. Pancreas: Unremarkable. Spleen: Subcentimeter hypodense lesion in the inferior spleen, statistically benign. Adrenal glands: Unremarkable. Kidneys: Kidneys enhance symmetrically, without hydronephrosis. Too small to characterize hypodense left renal lesions. Retroperitoneum: No lymphadenopathy. Bowel and mesentery: Bowel is not obstructed. Prior appendectomy. Few small colonic diverticula, no evidence of acute diverticulitis. No significant ascites. No pneumoperitoneum. Bladder: Inadequately evaluated due to decompression and streak artifact. Reproductive organs: Inadequately evaluated secondary to streak artifact. Pelvic lymph nodes: No lymphadenopathy. Vessels: Scattered atherosclerotic calcifications. Abdominal wall: No acute abdominal wall abnormality. Bones: Multilevel degenerative changes of the spine. Bones are osteopenic. Bilateral hip arthroplasties. IMPRESSION: No acute intra-abdominal abnormality to explain patient`s symptoms. Please note that all CT scans at this facility use dose modulation, iterative reconstruction, and/or weight-based dosing when appropriate to reduce radiation dose to as low as reasonably achievable. Dictated by Anibal Barbosa MD @ 12/29/2022 7:25:56 PM (Electronically Signed)
--- NOTE | 2022-12-29 17:40 | ED.GENADULT ---
HPI - General Adult General Chief complaint: Abdominal Pain Stated complaint: R side abdominal pain Time Seen by Provider: 12/29/22 17:16 Source: patient Mode of arrival: ambulatory Limitations: no limitations History of Present Illness HPI narrative: Patient is a 67-year-old male here for evaluation of right-sided abdominal pain which he reports has been present for about a week. It is constant, does move around location from the right upper to the right lower quadrant. Otherwise he has not had any other symptoms, he says his appetite is fine, no fevers, no diarrhea, black or bloody stools, no nausea or vomiting. No urinary symptoms. No history of similar pain. No injuries that he recalls. He has not taken anything for pain and declines the need for anything right now. Nothing really makes it better worse, he has not been sleeping well the past few nights but says that is not really related to pain he just has not been able sleep. He is on Eliquis for atrial fibrillation, also has a pacemaker. He does not smoke. Here today with his . Related Data Home Medications Medication Instructions Recorded Confirmed apixaban 5 mg tablet (Eliquis) 5 mg PO Q12H 12/05/21 12/05/21 atorvastatin 20 mg tablet 20 mg PO HS 12/05/21 12/05/21 furosemide 40 mg tablet 40 mg PO DAILY 12/05/21 12/05/21 losartan 50 mg tablet 50 mg PO HS 12/05/21 12/05/21 metoprolol succinate 50 mg 75 mg PO DAILY 12/05/21 12/05/21 tablet,extended release 24 hr Previous Rx's Medication Instructions Recorded oxycodone 5 mg tablet 5 mg PO Q6H PRN pain #15 tabs 12/05/21 sennosides 8.6 mg capsule (senna) 8.6 mg PO DAILY PRN constipation 12/05/21 #90 caps Allergies Allergy/AdvReac Type Severity Reaction Status Date / Time penicillin V Allergy Mild Rash Verified 12/29/22 18:13 ampicillin Allergy Hives Verified 12/29/22 18:13 Review of Systems Status of ROS: Reports: 10 or more systems reviewed and unremarkable except as noted in History and below PFSH PFS Surgical History S/P total hip arthroplasty ?Z96.649 - Presence of unspecified artificial hip joint (ICD-10) Social History Smoking Status: Former smoker Do you use any of these nicotine containing products: None Second hand tobacco smoke exposure: No How often do you have a drink containing alcohol: never How often do you have six or more drinks on one occasion: Never AUDIT-C Alcohol total score: 0 Non-prescribed substance use: denies use Caffeine: Yes service: No Exam Narrative: Exam Narrative: Vital signs as noted above. In general, an alert, well-appearing patient. He looks comfortable. Head: Normocephalic, atraumatic. Eyes: Pupils are equal reactive. Extraocular movements are full. Conjunctivae are normal. ENT: Mucous membranes are moist. Neck: Supple without lymphadenopathy. Heart: Regular rate and rhythm. No murmur or rub. Lungs: Clear bilaterally. No increased work of breathing, crackles or wheezes. Abdomen: Protuberant and soft, minimal right-sided tenderness without rebound guarding or rigidity. Mccrary's negative. Extremities: Well perfused. No edema. No calf tenderness. Pulses intact. Neurologic: Patient is alert and oriented to person and place. Speech is fluent. Face is symmetric. Moves all extremities equally. Affect: Normal. Skin: Warm and dry. Well perfused. Const: Vital Signs, click to edit/add: Vital Signs - 24 hr 12/29/22 17:10 12/29/22 19:54 Temperature 97.4 F L Pulse Rate [Right Pulse Oximeter] 79 69 Respiratory Rate 18 Blood Pressure [Ri ght Upper Arm] 180/114 H 170/109 H Pulse Oximetry 100 Oxygen Delivery Me thod Room Air Documenting provider has reviewed patient's vital signs: yes Course Course Hospital Course: Following initial evaluation, we will place an IV, I have ordered a CT scan to evaluate for possible cholecystitis, pancreatitis, aortic pathology, retroperitoneal hemorrhage, diverticulitis, kidney stone, or other pathology that could be responsible for his pain. He is status post appendectomy. UA pending, as are other labs. Patient continued to denied need for pain medications. His workup here is really very unrevealing. His white blood cell count is normal at 6.6, hemoglobin is 14.9. Electrolytes are normal, BUN 16 creatinine 0.6. Blood sugar is 86, lactate is 0.5. LFTs are normal with the exception of an AST of 40. CRP is 0.7. UA is entirely negative aside from 2-5 white blood cells, but in the absence of urinary symptoms I think this is likely an important. I did do a CT scan, by my review there was no evidence of diverticulitis, hydronephrosis, gallstones or other acute findings. Final radiology read is negative with no explanation for his pain. His abdominal exam is benign, he has had symptoms for a week and I think if this were related to cholecystitis, diverticulitis, etcetera we should see some changes in lab or imaging. Discussed with him I do not have a clear explanation for his pain at this time, but I do think it is reasonable to let him go home. He can use a few doses of ibuprofen and some ice, if he is not improving then he should see his primary doctor next week for recheck. He did have a normal colonoscopy a few years ago. If at any time he has acute severe pain, vomiting, fevers, bloody stools etcetera he should return to the emergency department for repeat evaluation despite the normal workup today. Vital Signs Vital signs: Initial Vital Signs Temperature 97.4 F L 12/29/22 17:10 Temperature Source Temporal Artery Scan 12/29/22 17:10 Pulse Rate 79 12/29/22 17:10 Pulse Rhythm Regular 12/29/22 17:10 Pulse Strength 3+ Normal 12/29/22 17:10 Respiratory Rate 18 12/29/22 17:10 Blood Pressure 180/114 H 12/29/22 17:10 Blood Pressure Mean 136 H 12/29/22 17:10 Blood Pressure Position Sitting 12/29/22 17:10 Pulse Oximetry 100 12/29/22 17:10 Oxygen Delivery Method Room Air 12/29/22 17:10 Vital Signs Temperature 97.4 F L 12/29/22 17:10 Pulse Rate 79 12/29/22 17:10 Respiratory Rate 18 12/29/22 17:10 Blood Pressure 180/114 H 12/29/22 17:10 Pulse Oximetry 100 12/29/22 17:10 Oxygen Delivery Method Room Air 12/29/22 17:10 Temperature 97.4 F L 12/29/22 17:10 Pulse Rate 69 12/29/22 19:54 Respiratory Rate 18 12/29/22 17:10 Blood Pressure 170/109 H 12/29/22 19:54 Pulse Oximetry 100 12/29/22 17:10 Oxygen Delivery Method Room Air 12/29/22 17:10 Medical Decision Making Lab Data Labs: Lab Results 12/29/22 12/29/22 12/29/22 Range/Units 17:45 17:58 18:00 WBC 6.59 (4.50-11.00) K/uL RBC 5.03 (4.30-5.90) m/uL Hgb 14.9 (13.5-17.5) gm/dL Hct 47.2 (37.0-53.0) % MCV 94 (80-100) fL MCH 30 (26-34) pg MCHC 32 (32-36) gm/dL RDW Coeff of Oscar 13.0 (11.5-15.5) % Plt Count 172 (140-440) K/uL Neut % (Auto) 70.4 (42.0-72.0) % Lymph % (Auto) 21.2 (20-44) % [place] % (Auto) 5.6 (0.0-11.0) % Eos % (Auto) 2.3 (0.0-7.0) % Baso % (Auto) 0.3 (0.0-3.0) % Neut # (Auto) 4.64 (1.7-7.0) K/uL Lymph # (Auto) 1.40 (0.90-2.90) K/uL [place] # (Auto) 0.40 (0.00-0.90) K/UL Eos # (Auto) 0.15 (0.00-0.50) K/uL Baso # (Auto) 0.02 (0.00-0.30) K/uL Abs Immat Gran (auto) 0.01 (0.00-0.30) K/uL Imm/Tot Granulo (auto) 0.2 % Sodium 142 (135-149) mmol/L Potassium 4.1 (3.6-5.1) mmol/L Chloride 108 (96-114) mmol/L Carbon Dioxide 28 (20-32) mmol/L BUN 16 (7-30) mg/dL Creatinine 0.9 (0.5-1.5) mg/dL Estimated Creat Clear 76.35 Estimated GFR 94 ml/min Glucose 86 (60-115) mg/dL Lactate 0.5 (0.5-1.9) mmol/L Calcium 9.0 (8.4-10.6) mg/dL Total Bilirubin 1.2 (0.1-1.5) mg/dL Direct Bilirubin 0.1 (0.0-0.5) mg/dL AST 40 H (12-35) U/L ALT 26 (4-50) U/L Alkaline Phosphatase 114 (40-150) U/L C-Reactive Protein 0.7 (0.5-1.0) mg/dL Total Protein 7.2 (6.0-8.3) g/dL Albumin 4.1 (3.3-5.0) g/dL Urine Color Yellow (Yellow) Urine Appearance Clear (Clear) Urine pH 5.5 (5.0-8.5) Ur Specific [place] 1.025 (1.000-1.030) Urine Protein 1+ A (Negative) Urine Glucose (UA) Negative (Negative) Urine Ketones Negative (Negative) Urine Blood Negative (Negative) Urine Nitrite Negative (Negative) Urine Bilirubin Negative (Negative) Urine Urobilinogen 0.2 (0.2-1.0) Ur Leukocyte Esterase Negative (Negative) Urine RBC 0-2 (0-2) Urine WBC 2-5 (0-5) Ur Squamous Epith Cells None (None-Few) Urine Bacteria None (None) POC Creatinine 1.0 (0.6-1.3) mg/dl Discharge Plan Discharge Clinical Impression: Abdominal pain Patient Disposition: Home, Self-Care Condition: Stable Instructions: Abdominal Pain (ED) Additional Instructions: Your workup today is unrevealing, your CT scan is entirely normal and your labs are normal as well. The etiology of your pain is unclear at this time, sometimes muscular pain can cause abdominal pain. I would recommend a trial of something like ibuprofen a couple of times a day for a few days to see if you feel improved. You can use ice. Follow-up with your primary doctor within the next few days if you are not improving, and if any time you are worse, have new symptoms such as vomiting, fever, bloody stools, or severe uncontrolled pain, return to the emergency department. Prescriptions: No Action Eliquis 5 mg tablet 5 mg PO Q12H Patient Comments: TAKE 1 TABLET BY MOUTH TWICE DAILY furosemide 40 mg tablet 40 mg PO DAILY metoprolol succinate 50 mg tablet extended release 24 hr 75 mg PO DAILY losartan 50 mg tablet 50 mg PO HS atorvastatin 20 mg tablet 20 mg PO HS oxycodone 5 mg tablet 5 mg PO Q6H PRN (Reason: pain) Qty: 15 0RF senna 8.6 mg capsule 8.6 mg PO DAILY PRN (Reason: constipation) Qty: 90 0RF Rx Instructions: Please take stool softeners while on narcotic pain medication. Stop if having >2 stools per day. Follow Up/Referrals: Provider,Not a Local [Primary Care Provider] - Stand Alone Forms: [employer] Info Instructions
[2022-12-29 18:04] LABS: Basophils Absolute Auto 0.02 K/uL (0.00-0.30); Basophils Percent Auto 0.3 % (0.0-3.0); Eosinophils Absolute Auto 0.15 K/uL (0.00-0.50); Eosinophils Percent Auto 2.3 % (0.0-7.0); Hematocrit 47.2 % (37.0-53.0); Hemoglobin* 14.9 gm/dL (13.5-17.5); Immature Granulocytes Abs Auto 0.01 K/uL (0.00-0.30); Immature Granulocytes Pct Auto 0.2 %; Lymphocytes Percent Auto 21.2 % (20-44); Mean Corpuscular HGB Conc 32 gm/dL (32-36); Mean Corpuscular Hemoglobin 30 pg (26-34); Mean Corpuscular Volume 94 fL (80-100); Monocytes Percent Auto 5.6 % (0.0-11.0); Neutrophils Absolute Auto 4.64 K/uL (1.7-7.0); Neutrophils Percent Auto 70.4 % (42.0-72.0); Platelet Count* 172 K/uL (140-440); Red Blood Count 5.03 m/uL (4.30-5.90); White Blood Count* 6.59 K/uL (4.50-11.00)
[2022-12-29 18:16] LABS: Appearance Urine Clear (Clear); Bilirubin Urine Negative (Negative); Blood Urine Negative (Negative); Color Urine Yellow (Yellow); Glucose Urine Negative (Negative); Ketones Urine Negative (Negative); Leukocyte Esterase Urine Negative (Negative); Nitrite Urine Negative (Negative); Protein Urine 1+ (Negative); Specific Gravity Urine 1.025 (1.000-1.030); Urobilinogen Urine 0.2 (0.2-1.0); pH Urine 5.5 (5.0-8.5)
[2022-12-29] MEDS: 0.9 % SODIUM CHLORIDE 500 ML 500 ML IV (18:18)
[2022-12-29 18:25] LABS: Albumin* 4.1 g/dL (3.3-5.0); Chloride* 108 mmol/L (96-114); Potassium* 4.1 mmol/L (3.6-5.1); Slide Review Reflex No; Sodium* 142 mmol/L (135-149)
[2022-12-29 18:27] LABS: Creatinine* 0.9 mg/dL (0.5-1.5); Est. Creatinine Clearance* 76.35; Estimated Glomerular Filt Rate 94 ml/min
[2022-12-29 18:28] LABS: Alanine Aminotransferase* 26 U/L (4-50); Alkaline Phosphatase* 114 U/L (40-150); Aspartate Amino Transferase* 40 U/L (12-35); Bilirubin Direct* 0.1 mg/dL (0.0-0.5); Bilirubin Total* 1.2 mg/dL (0.1-1.5); Blood Urea Nitrogen* 16 mg/dL (7-30); Carbon Dioxide* 28 mmol/L (20-32); Glucose* 86 mg/dL (60-115); Total Protein* 7.2 g/dL (6.0-8.3)
[2022-12-29 18:31] LABS: C Reactive Protein* 0.7 mg/dL (0.5-1.0)
[2022-12-29 18:35] LABS: RBC Urine 0-2 (0-2)
[2022-12-29 18:38] LABS: Lactate Sepsis w/Reflex* 0.5 mmol/L (0.5-1.9)
[2022-12-29 19:54] VITALS: BP 170/109; PULSE 69
== END 2022-12-29 19:55 | disposition home or self-care (01) ==
PROVIDERS: Emergency Provider Emergency Medicine
DX: R10.31 Right lower quadrant pain (principal)
CPT/HCPCS: 36415; 74177; 80048; 80076; 81001; 82565; 83605; 85025; 86140; 99283; 99284; J7120; Q9967